=== PATIENT | male | born 2000 | race Caucasian/White ===

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

== ENCOUNTER 2022-02-27 16:42 | Emergency (ER) | payer OTHER, BC ==
[~2022-02-27] VITALS: Ht 175.3 cm; Wt 79.5 kg
[2022-02-27 16:43] VITALS: BP 136/75
[2022-02-27] MEDS ORDERED: ONDA4TAB6 PO (18:40)
== END 2022-02-27 18:52 | disposition home or self-care (01) ==
LOC: M ED 16:42
DX: S09.90XA Unspecified injury of head, initial encounter (principal); W22.8XXA Striking against or struck by other objects, initial encounter; Y99.0 Civilian activity done for income or pay; Z91.018 Allergy to other foods

== ENCOUNTER 2023-10-07 12:21 | Emergency (ER) | payer OTHER, BC ==
[~2023-10-07] VITALS: Ht 175.3 cm; Wt 86.9 kg
[~2023-10-07 12:21] MED LIST: ONDA4TAB6 PO
[2023-10-07] MEDS: CEPHALEXIN 500 MG CAP PO ONE (17:03)
[2023-10-07] MEDS: BOOSTRIX VACCINE (TETANUS/DIPHTH/ACEL. PERTUSSIS) 0.5ML SYR IM ONE (17:04)
[2023-10-07] MEDS: LIDOCAINE 1% MDV 20ML VIAL SC ONE (17:11)
[2023-10-07] MEDS ORDERED: CEPH500C PO (17:35)
[2023-10-07 17:44] VITALS: BP 139/79; TEMP 98.7; O2SAT 97
== END 2023-10-07 17:46 | disposition home or self-care (01) ==
LOC: M ED 12:21
DX: S61.412A Laceration without foreign body of left hand, initial encounter (principal); S61.213A Laceration without foreign body of left middle finger without damage to nail, initial encounter; X58.XXXA Exposure to other specified factors, initial encounter; Y92.9 Unspecified place or not applicable; Y93.9 Activity, unspecified; Y99.0 Civilian activity done for income or pay; Z91.018 Allergy to other foods